=== PATIENT | female | born 1955 | race Caucasian/White ===

== ENCOUNTER → 2020-12-17 | Emergency (ER) | payer MEDICARE ==
[~2020-12-17] VITALS: Ht 175.3 cm; Wt 90.9 kg
[2020-12-17 21:27] VITALS: BP 145/83; PULSE 75; TEMP 98.4
== END ==
LOC: COL.ER 19:51
DX: S40.012A Contusion of left shoulder, initial encounter (principal); S00.83XA Contusion of other part of head, initial encounter; W18.09XA Striking against other object with subsequent fall, initial encounter; Y92.009 Unspecified place in unspecified non-institutional (private) residence as the place of occurrence of the external cause